=== PATIENT | male | born 1945 | race Caucasian/White ===

== ENCOUNTER 2016-12-11 09:24 | Emergency (ER) | payer OTHER ==
[~2016-12-11] VITALS: Ht 167.6 cm; Wt 105.0 kg
[~2016-12-11 09:24] MED LIST: ASPI325T PO; ATOR40TA49 PO; CLOP75 PO; ENAL5 PO; METO25 PO; PRIL20TA2 PO; SERT100 PO
[2016-12-11 09:26] VITALS: BP 198/97; PULSE 96; RESP 20; TEMP 97.6; O2SAT 98
[2016-12-11 09:38] VITALS: BP 199/113; PULSE 81; RESP 16; O2SAT 94
--- NOTE | 2016-12-11 09:41 | PD ---
HPI Chief Complaint: Flank/Kidney Pain Time Seen by Provider: 09:33 Travel History International Travel<30 days: No Contact w/Intl Traveler<30days: No Traveled to known affect area: No History of Present Illness HPI 71-year-old male complains of right flank pain. Patient states that the pain started 2 days ago. Patient states the pain is sharp pain started of right flank area with radiation to right side abdomen. Patient states that he has nausea with the pain. Patient denies any vomiting or diarrhea. Patient denies any dysuria or frequency. Patient denies any fever chills. On a scale of 1-10 the pain is a 5. Patient denies any history kidney stone in the past. PFSH Past Medical History Depression: Yes Cancer: No Cardiovascular Problems: No Diabetes: No Diminished Hearing: No Endocrine: No GERD: Yes Genitourinary: No Hepatitis: Yes (HEP C) Hiatal Hernia: No Immune Disorder: No Musculoskeletal: Yes (ARTHRITIS) Neurologic: No Psychiatric: Yes (DEPRESSION) Reproductive: No Respiratory: Yes (SLEEP APNEA, PNEUMONIA 07/2014) Thyroid Disease: No Past Surgical History Abdominal Surgery: Yes (BILIARY DRAIN PLACEMENT AND REMOVAL 07/2014) AICD: No Body Medical Devices: BILIARY DRAIN PLACED AND REMOVED Cardiac Surgery: No Ear Surgery: No Endocrine Surgery: No Eye Surgery: No Genitourinary Surgery: Yes (HEMORRHOIDECTOMY) Gynecologic Surgery: No Joint Replacement: No Oral Surgery: No Pacemaker: No Thoracic Surgery: No Other Surgery: Yes (CYST REMOVAL BILAT. EAR) Social History Alcohol Use: No Tobacco Use: No (QUIT 2000 - HX OF 5 PPD) Substance Use: No Allergies-Medications (Allergen,Severity, Reaction): Coded Allergies: No Known Allergies (Unverified , 12/11/16) Reported Meds & Prescriptions Reported Meds & Active Scripts Active Reported Prilosec (Omeprazole Magnesium) 20 Mg Tab 20 Mg PO DAILY Metoprolol Tartrate 25 Mg Tab 25 Mg PO BID Lipitor (Atorvastatin Calcium) 40 Mg Tab 40 Mg PO HS Aspirin 325 Mg Tab 325 Mg PO DAILY Zoloft (Sertraline HCl) 100 Mg Tab 100 Mg PO BID Review of Systems General / Constitutional: No: Fever Eyes: No: Visual changes HENT: No: Headaches Cardiovascular: No: Chest Pain or Discomfort Respiratory: No: Shortness of Breath Gastrointestinal: Positive: Nausea, Abdominal Pain Genitourinary: No: Dysuria Musculoskeletal: No: Pain Skin: No Rash Neurologic: No: Weakness Psychiatric: No: Depression Endocrine: No: Polydipsia Hematologic/Lymphatic: No: Easy Bruising Physical Exam Narrative GENERAL: Well-nourished, well-developed patient. SKIN: Focused skin assessment warm/dry. HEAD: Normocephalic. EYES: No scleral icterus. No injection or drainage. NECK: Supple, trachea midline. No JVD or lymphadenopathy. CARDIOVASCULAR: Regular rate and rhythm without murmurs, gallops, or rubs. RESPIRATORY: Breath sounds equal bilaterally. No accessory muscle use. GASTROINTESTINAL: Abdomen soft, non-tender, nondistended. MUSCULOSKELETAL: No cyanosis, or edema. BACK: Patient has mild tenderness on palpation right flank area. Neurologic exam normal. Data Data Last Documented VS Vital Signs Date Time Temp Pulse Resp B/P Pulse Ox O2 Delivery O2 Flow Rate FiO2 12/11/16 09:38 81 16 199/113 94 Room Air 12/11/16 09:26 97.6 Orders Urinalysis - C+S If Indicated (12/11/16 09:36) Ct Abd/Pel W/O Iv Contrast (12/11/16 09:36) Sodium Chloride 0.9% Flush (Ns Flush) (12/11/16 09:45) Metoprolol Tartrate (Lopressor) (12/11/16 09:45) Labs Laboratory Tests Test 12/11/16 09:52 Urine Color YELLOW Urine Turbidity CLEAR Urine pH 5.0 Urine Specific [place] 1.026 Urine Protein TRACE mg/dL Urine Glucose (UA) NEG mg/dL Urine Ketones NEG mg/dL Urine Occult Blood TRACE Urine Nitrite NEG Urine Bilirubin NEG Urine Urobilinogen LESS THAN 2.0 MG/DL Urine Leukocyte Esterase NEG Urine RBC 1 /hpf Urine WBC 1 /hpf Urine Squamous Epithelial <1 /hpf Cells Urine Mucus FEW /lpf Microscopic Urinalysis Comment CULT NOT INDICATED MDM Medical Decision Making Medical Screen Exam Complete: Yes Emergency Medical Condition: Yes Interpretation(s) 10:[address] scan abdomen and pelvis shows no acute pathology. Enlarged lymph node adjacent to distal esophagus. UA is negative. Differential Diagnosis Differential diagnosis including musculoskeletal, nephrolithiasis, pyelonephritis, colitis, appendicitis. Narrative Course 71-year-old male with right flank pain with radiation to the right side abdomen. Diagnosis Primary Impression: Lumbar strain Qualified Code: S39.012A - Lumbar strain, initial encounter Patient Instructions: General Instructions Additional Instructions: Take medications as needed for pain. Follow-up with personal physician. Return if persistent problem or worse. Med/Other Pt SpecificInfo: Prescription(s) given Scripts Acetaminophen-Codeine (Tylenol-Codeine #3)300-30 mg Tab1 Tab PO Q6HR PRN (PAIN SCALE 1 TO 10) #20 TAB Prov:Aldo Dash MD 12/11/16 Meloxicam (Mobic)15 Mg Tab15 Mg PO DAILY #10 TAB Prov:Aldo Dahs MD 12/11/16 Disposition: 01 DISCHARGE HOME Condition: Stable Aldo Dash MD December 11, 2016 09:41
[2016-12-11] MEDS ORDERED: PRIL20TA2 PO (09:42)
[2016-12-11] MEDS ORDERED: LIPI40TA PO (09:42)
[2016-12-11] MEDS ORDERED: METO25TA3 PO (09:42)
[2016-12-11] MEDS ORDERED: ASPI325T PO (09:42)
[2016-12-11] MEDS ORDERED: ENAL5TAB PO (09:42)
[2016-12-11] MEDS ORDERED: METOPROLOL TARTRATE 25 MG TAB PO ONE (09:45)
[2016-12-11] MEDS ORDERED: SODIUM CHLORIDE 0.9% FLUSH 10 ML FLUSH IV FLUSH PRN (09:45)
[2016-12-11 10:01] LABS: BLOOD, URINE TRACE (NEG); GLUCOSE,URINE NEG (NEG); KETONE, URINE NEG (NEG); MUCUS URINE FEW /lpf (OCC); NITRITE,URINE NEG (NEG); SQUAMOUS EPITHELIAL CELL URINE <1 /hpf (0-5); URINE COLOR YELLOW (YELLW/STRAW)
[2016-12-11 10:02] LABS: COMMENT (UR) CULT NOT INDICATED; CULTURE IF INDICATED CULT NOT INDICATED
--- NOTE | 2016-12-11 10:27 | RADRPT ---
EXAM DATE/TIME: 12/11/2016 10:06 [facility] COMPARISON: No previous studies available for comparison. INDICATIONS : Right flank pain radiating to mid abdomen since Sunday. ORAL CONTRAST: No oral contrast ingested. RADIATION DOSE: 7.11 CTDIvol (mGy) MEDICAL HISTORY : Hepatitis C. SURGICAL HISTORY : Cholecystectomy. ENCOUNTER: Initial ACUITY: 3 days PAIN SCALE: 4/10 LOCATION: Right flank TECHNIQUE: Volumetric scanning of the abdomen and pelvis was performed. Using automated exposure control and ad justment of the mA and/or kV according to patient size, radiation dose was kept as low as reasonably achievable to obtain optimal diagnostic quality images. FINDINGS: LOWER LUNGS: The visualized lower lungs are clear. LIVER: Homogeneous density without lesion. There is no dilation of the biliary tree. There has been prior cholecystectomy clips in the gallbladder fossa. SPLEEN: Normal size without lesion. PANCREAS: Within normal limits. KIDNEYS: Normal in size and shape. There is no mass, stone, or hydronephrosis. There is a low-density lesion at the upper pole the right kidney measuring 2.6 cm the density measurements characteristic of a cyst . ADRENAL GLANDS: Within normal limits. VASCULAR: There is no aortic aneurysm. There is mild atherosclerotic disease. BOWEL/MESENTERY: The stomach, small bowel, and colon demonstrate no acute abnormality. There is no free intraperitone al air or fluid. Appendix is normal. A mildly enlarged lymph node is present in the posterior mediast inum abutting the distal esophagus. It measures 1.5 x 1.2 cm. ABDOMINAL WALL: Within normal limits. RETROPERITONEUM: There is no lymphadenopathy. BLADDER: No wall thickening or mass. REPRODUCTIVE: Within normal limits. INGUINAL: There is no lymphadenopathy or hernia. MUSCULOSKELETAL: There are degenerative changes of the lumbar spine. CONCLUSION: 1. No acute findings identified to explain the clinical symptoms. No renal stones are present. Additi onally, appendix is normal. 2. Enlarged lymph node adjacent to the distal esophagus. This is of uncertain etiology. Distal esopha yelena demonstrates no visible abnormality on this exam. 3. Nonacute findings include 2.6 cm right renal cyst and mild atherosclerotic disease. Rickey Curran MD on December 11, 2016 at 10:19 Board Certified Radiologist. This report was verified electronically.
[2016-12-11] MEDS ORDERED: TYLETAB34 PO (10:37)
[2016-12-11] MEDS ORDERED: MOBI15TA PO (10:37)
[2016-12-11 10:40] VITALS: BP 174/92; PULSE 71; RESP 16; O2SAT 96
== END 2016-12-11 10:57 | disposition home or self-care (01) ==
LOC: NEPD 09:24
DX: S39.012A Strain of muscle, fascia and tendon of lower back, initial encounter (principal); R11.0 Nausea; G47.30 Sleep apnea, unspecified; Z86.59 Personal history of other mental and behavioral disorders; Z87.19 Personal history of other diseases of the digestive system; Z87.39 Personal history of other diseases of the musculoskeletal system and connective tissue; Z87.891 Personal history of nicotine dependence; X58.XXXA Exposure to other specified factors, initial encounter
CPT/HCPCS: 74176; 81001; 99284